=== PATIENT | male | born 1980 | race Two or more races ===

== ENCOUNTER 2017-05-05 12:09 | Inpatient (IN) | payer OTHER ==
[2017-05-05 12:37] VITALS: BMI 22.8
--- NOTE | 2017-05-05 16:57 | HP ---
COWS - Scale Resting Pulse: 2= MT 101-120 Sweatin=Flushed/Facial Moisture Restless Observation: 3= Extraneous Movement Pupil Size: 1= Pupils >than Normal Bone or Joint Aches: 2= Severe Diffuse Aches Runny Nose/ Eye Tearin= Nasal Congestion GI Upset > 30mins: 1= Stomach Cramp Tremor Observation: 2= Slight Tremor Visible Yawning Observation: 0= None Anxiety or Irritability: 2=Irritable/Anxious Goose Flesh Skin: 0=Smooth Skin COWS Score: 16 Admission [facility] Chief Complaint: Heroin withdrawal symptoms Allergies/Adverse Reactions: Allergies Allergy/AdvReac Type Severity Reaction Status Date / Time No Known Allergies Allergy Verified 05/05/17 16:51 History of Present Illness: 36 years old male with a long history of heroin, crack cocaine dependence is admitted to detox. Patient has been in previous detox and reports no significant period of abstinence. Patient reports medical history of asthma, acne and insomnia. He denies history of suicidal attempt or suicidal ideation at this time. Patient reports., " My goal is to stop drug use." This is patient' s first admission to [facility]. Exam Limitations: No Limitations - Ebola screening Have you traveled outside of the country in the last 21 days: No Have you had contact with anyone from an Ebola affected area: No Have you been sick,other than usual withdrawal symptoms: No Do you have a fever: No - Review of Systems Constitutional: Chills, Diaphoresis, Loss of Appetite, Malaise, Night Sweats, Changes in sleep EENT: reports: No Symptoms Reported Respiratory: reports: Cough (yellowish phlegm) Cardiac: reports: No Symptoms Reported GI: reports: Poor Appetite, Poor Fluid Intake, Abdominal cramping : reports: No Symptoms Reported Musculoskeletal: reports: Back Pain, Muscle Pain, Muscle Weakness Integumentary: reports: Flushing Neuro: reports: Tingling, Tremors Endocrine: reports: Flushing Hematology: reports: No Symptoms Reported Psychiatric: reports: Orientated x3, Agitated, Anxious Other Systems: Reviewed and Negative Patient History - Patient Medical History Hx Anemia: No Hx Asthma: Yes (on albuterol) Hx Chronic Obstructive Pulmonary Disease (COPD): No Hx Cancer: No Hx Cardiac Disorders: No Hx Congestive Heart Failure: No Hx Hypertension: No Hx Hypercholesterolemia: No HX Cerebrovascular Accident: No Hx Seizures: No Hx Dementia: No Hx Diabetes: No Hx Gastrointestinal Disorders: No Hx Liver Disease: No Hx Genitourinary Disorders: No Hx Sexually Transmitted Disorders: No Hx Renal Disease (ESRD): No Hx Thyroid Disease: No Hx Human Immunodeficiency Virus (HIV): No (Negative 2017) Hx Hepatitis C: No Hx Depression: No Hx Suicide Attempt: No Hx Bipolar Disorder: No Hx Schizophrenia: No - Patient Surgical History Past Surgical History: No - PPD History Previous Implant?: Yes Implanted On Prior R Admission?: No PPD to be Administered?: Yes - Reproductive History Patient is a Female of Child Bearing Age (11 -55 yrs old): No (Male) - Smoking Cessation Smoking history: Never smoked Have you smoked in the past 12 months: No Hx Chewing Tobacco Use: No Initiated information on smoking cessation: No - Substances Abused Heroin Route: Inhalation Frequency: Daily Amount used: 25 bags Age of first use: 27 Date of Last Use: 05/05/17 Cocaine (crack) Route: Smoking Frequency: Daily Amount used: $100-$120 Age of first use: 34 Date of Last Use: 05/05/17 Marijuana/Hashish Route: Smoking Amount used: $20 Age of first use: 14 Date of Last Use: 05/03/17 Family Disease History - Family Disease History Family Disease History: Diabetes: Mother, Heart Disease: Father (heart attack- ) Admission Physical Exam BHS - Vital Signs Vital Signs: Vital Signs - 24 hr 05/05/17 05/05/17 12:32 12:56 Temperature 98.4 F 98.4 F Pulse Rate 102 H 102 H Respiratory 19 19 Rate Blood Pressure 136/93 136/93 - Physical General Appearance: Yes: Moderate Distress, Tremorous, Irritable, Sweating, Anxious HEENTM: Yes: AUGUST, Sinus Tenderness, Other (acne) Respiratory: Yes: Chest Non-Tender, Wheezing Neck: Yes: No masses,lesions,Nodules, Supple, Trachea in good position Breast: Yes: Breast Exam Deferred Cardiology: Yes: Regular Rhythm, Regular Rate, S1, S2 Abdominal: Yes: Normal Bowel Sounds, Soft Genitourinary: Yes: Within Normal Limits Back: Yes: Muscle Spasm Musculoskeletal: Yes: Muscle Pain, Muscle weakness Extremities: Yes: Tremors Neurological: Yes: Alert, Normal Mood/Affect, Normal Response Integumentary: Yes: Dry (skin and mucous membrane), Pale Lymphatic: Yes: Within Normal Limits - Diagnostic (1) Opioid dependence with withdrawal Current Visit: Yes Status: Chronic (2) Cocaine dependence, uncomplicated Current Visit: Yes Status: Chronic (3) Cannabis dependence, uncomplicated Current Visit: Yes Status: Chronic (4) Asthma Current Visit: Yes Status: Chronic (5) Insomnia Current Visit: Yes Status: Chronic Cleared for Admission [facility] - Detox or Rehab [facility] Level of Care: Medically Managed Detox Regimen/Protocol: Methadone [facility] Breath Alcohol Content Breath Alcohol Content: 0 Urine Drug Screen - Results Drug Screen Negative: No Urine Drug Screen Results: LUIS DANIEL-Cocaine, OPI-Opiates
[2017-05-05] MEDS ORDERED: LOPERAMIDE HCL 2 MG CAPSULE PO PRN (17:19)
[2017-05-05] MEDS ORDERED: IBUPROFEN 400 MG TABLET (FP) PO PRN (17:19)
[2017-05-05] MEDS ORDERED: MAGNESIUM HYDROX 2400MG/30ML ORAL SUSPENSION 30 ML CUP PO PRN (17:19)
[2017-05-05] MEDS ORDERED: MAG HYDROX/AL HYDROX/SIMETH 30 ML UNIT-DOSE CUP PO PRN (17:19)
[2017-05-05] MEDS ORDERED: MAGNESIUM CITRATE 300 ML BOTTLE PO PRN (17:19)
[2017-05-05] MEDS ORDERED: MENTHOL/PHENOL 1 EACH UD MM PRN (17:19)
[2017-05-05] MEDS ORDERED: P-EPHED 60MG/TRIPROLIDI 2.5MG TABLET PO PRN (17:19)
[2017-05-05] MEDS ORDERED: guaiFENesin/D-METHORPHAN HB 10 ML UNIT-DOSE CUPS PO PRN (17:19)
[2017-05-05] MEDS ORDERED: METHADONE HCL 10 MG TABLET (FOR DETOX USE ONLY) PO ONE ×2 (18:00→23:00)
[2017-05-05] MEDS: diazePAM 5 MG TABLET PO PRN (18:33)
[2017-05-05] MEDS: THIAMINE HCL 100 MG TABLET (FP) PO SCH (22:08)
[2017-05-06 00:15] LABS: PH,URINE 6.5 (5.0-8.0); URINE APPEARANCE CLEAR; URINE BILIRUBIN NEGATIVE (NEGATIVE); URINE BLOOD NEGATIVE (NEGATIVE); URINE COLOR LT. YELLOW; URINE GLUCOSE (UA) NEGATIVE (NEGATIVE); URINE KETONE NEGATIVE (NEGATIVE); URINE LEUK ESTERASE NEGATIVE (NEGATIVE); URINE NITRITE NEGATIVE (NEGATIVE); URINE PROTEIN NEGATIVE (NEGATIVE); URINE UROBILINOGEN 0.2 mg/dL (0.2-1.0)
[2017-05-06] MEDS: diazePAM 5 MG TABLET PO PRN ×5 (01:00→22:25)
[2017-05-06] MEDS: ALBUTEROL SO4 18 GM HFA INHALER IH PRN ×3 (01:01→19:00)
[2017-05-06] MEDS ORDERED: ALBUTEROL SO4 2.5/IPRATROPIUM 0.5 INH SOL 3 ML VIAL.NEB. NEB PRN (08:30)
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
[2017-05-06] MEDS ORDERED: METHADONE HCL 10 MG TABLET (FOR DETOX USE ONLY) PO ONE (10:00)
[2017-05-06] MEDS: PRENATAL VITAMINS W/ FOLIC ACID TABLET (FP) PO SCH (10:35)
--- NOTE | 2017-05-06 10:50 | EKG ---
Test Reason : Blood Pressure : / mmHG Vent. Rate : 091 BPM Atrial Rate : 091 BPM P-R Int : 142 ms QRS Dur : 088 ms QT Int : 354 ms P-R-T Axes : 072 078 053 degrees QTc Int : 435 ms NORMAL SINUS RHYTHM POSSIBLE LEFT ATRIAL ENLARGEMENT BORDERLINE ECG NO PREVIOUS ECGS AVAILABLE Confirmed by MD SOFYA, ENDER ([id number]) on 05/06/2017 10:50:20 AM Referred By: Confirmed By:ENDER COWART MD
[2017-05-06] MEDS ORDERED: COLLOIDAL OATMEAL 1 BAR EACH TP PRN (11:00)
[2017-05-06 11:05] LABS: ALBUMIN 3.4 g/dl (3.4-5.0); ALK PHOS 62 U/L (45-117); ANION GAP 8 (8-16); BILIRUBIN,TOTAL 0.4 mg/dL (0.2-1.0); CALCIUM 7.9 mg/dL (8.5-10.1); CO2 27 mmol/L (21-32); CREATININE 0.8 mg/dL (0.7-1.3); GLUCOSE,RANDOM 88 mg/dL (74-106); SGOT/AST 9 U/L (15-37); SGPT/ALT 22 U/L (12-78); TOT PROT 6.6 g/dl (6.4-8.2)
[2017-05-06 11:08] LABS: MCH 27.7 pg (25.7-33.7); MCHC 32.5 g/dl (32.0-35.9); MEAN CELL VOLUME 85.3 fl (80-96); MEAN PLT VOLUME 9.6 fl (7.5-11.1); PLATELET COUNT 249 K/MM3 (134-434); RDW 13.1 % (11.9-15.9); WHITE BLOOD COUNT 13.5 K/mm3 (4.0-10.0)
[2017-05-06 11:27] LABS: HIV 1 & 2 AB NEGATIVE; HIV 1 AGp24 NEGATIVE
[2017-05-06] MEDS: BACITRACIN 0.9 GM PACKET TP SCH ×2 (14:47→22:24)
[2017-05-06 14:59] LABS: URINE LEUK ESTERASE Negative (NEGATIVE)
--- NOTE | 2017-05-06 15:00 | PN ---
BHS COWS - Scale Resting Pulse: 2= [place] 101-120 Sweatin= Chills/Flushing Restless Observation: 1= Difficult to Sit Still Pupil Size: 0= Normal to Room Light Bone or Joint Aches: 2= Severe Diffuse Aches Runny Nose/ Eye Tearin= Nasal Congestion GI Upset > 30mins: 0= None Tremor Observation of Outstretched Hands: 0= None Yawning Observation: 1= 1-2x During Session Anxiety or Irritability: 2=Irritable/Anxious Goose Flesh Skin: 3=Piloerection COWS Score: 13 BHS Progress Note (SOAP) Subjective: Anxious, Sweating, Body Aches. Objective: PT. A & O X 3, OBSERVED AMBULATING ON UNIT. NO ACUTE DISTRESS. 05/06/17 14:58 Vital Signs Temperature 97.9 F 05/06/17 13:21 Pulse Rate 117 H 05/06/17 13:21 Respiratory Rate 18 05/06/17 13:21 Blood Pressure 132/83 05/06/17 13:21 O2 Sat by Pulse Oximetry (%) Laboratory Tests 05/05/17 05/06/17 05/06/17 21:00 07:00 07:00 WBC 13.5 H RBC 5.25 Hgb 14.6 Hct 44.8 MCV 85.3 MCH 27.7 MCHC 32.5 RDW 13.1 Plt Count 249 MPV 9.6 Sodium 141 Potassium 3.6 Chloride 106 Carbon Dioxide 27 Anion Gap 8 BUN 9 Creatinine 0.8 Creat Clearance w eGFR > 60 Random Glucose 88 Calcium 7.9 L Total Bilirubin 0.4 AST 9 L ALT 22 Alkaline Phosphatase 62 Total Protein 6.6 Albumin 3.4 Urine Color Lt. yellow Urine Appearance Clear Urine pH 6.5 Ur Specific [place] 1.015 Urine Protein Negative Urine Glucose (UA) Negative Urine Ketones Negative Urine Blood Negative Urine Nitrite Negative Urine Bilirubin Negative Urine Urobilinogen 0.2 RPR Titer HIV 1&2 Antibody Screen HIV P24 Antigen 05/06/17 05/06/17 07:00 08:00 WBC RBC Hgb Hct MCV MCH MCHC RDW Plt Count MPV Sodium Potassium Chloride Carbon Dioxide Anion Gap BUN Creatinine Creat Clearance w eGFR Random Glucose Calcium Total Bilirubin AST ALT Alkaline Phosphatase Total Protein Albumin Urine Color Urine Appearance Urine pH Ur Specific [place] Urine Protein Urine Glucose (UA) Urine Ketones Urine Blood Urine Nitrite Urine Bilirubin Urine Urobilinogen RPR Titer Nonreactive HIV 1&2 Antibody Screen Negative HIV P24 Antigen Negative LABS NOTED. HCV AB RESULT PENDING. 05/06/17 15:00 Assessment: 05/06/17 14:59 WITHDRAWAL SYMPTOMS. Plan: CONTINUE DETOX. INCREASE DAILY PO FLUID INTAKE.
[2017-05-06] MEDS: ACETAMINOPHEN 325 MG TABLET (FP) PO PRN (20:24)
[2017-05-06] MEDS: ZOLPIDEM TARTRATE 10 MG TABLET (PARK CARE ONLY) PO PRN (22:25)
[2017-05-06] MEDS: THIAMINE HCL 100 MG TABLET (FP) PO SCH (22:25)
[2017-05-07] MEDS: ALBUTEROL SO4 18 GM HFA INHALER IH PRN ×3 (05:02→22:32)
[2017-05-07] MEDS ORDERED: METHADONE HCL 5 MG TABLET (FOR DETOX USE ONLY) PO ONE (10:00)
[2017-05-07] MEDS: BACITRACIN 0.9 GM PACKET TP SCH ×2 (10:42→22:32)
[2017-05-07] MEDS: PRENATAL VITAMINS W/ FOLIC ACID TABLET (FP) PO SCH (10:43)
[2017-05-07] MEDS: diazePAM 5 MG TABLET PO PRN ×3 (10:43→18:54)
--- NOTE | 2017-05-07 14:34 | PN ---
[facility] CIWA - CIWA Score Nausea/Vomitin-No Nausea/No Vomiting Muscle Tremors: None Anxiety: 5 Agitation: 4-Moderately Restless Paroxysmal Sweats: 3 Orientation: 0-Oriented Tacttile Disturbances: 2-Mild Itch/Numbness/Burn Auditory Disturbances: 2-Mild Harshness/Frighten Visual Disturbances: 0-None Headache: 0-None Present CIWA-Ar Total Score: 16 S Progress Note (SOAP) Subjective: Anxious, Sweating, Body Aches. Objective: PT. A & O X 3, OBSERVED AMBULATING ON UNIT. NO ACUTE DISTRESS. 05/07/17 14:31 Vital Signs Temperature 98.8 F 05/07/17 09:43 Pulse Rate 108 H 05/07/17 09:43 Respiratory Rate 18 05/07/17 09:43 Blood Pressure 129/83 05/07/17 09:43 O2 Sat by Pulse Oximetry (%) Laboratory Tests 05/05/17 05/05/17 05/06/17 07:00 21:00 07:00 WBC 13.5 H RBC 5.25 Hgb 14.6 Hct 44.8 MCV 85.3 MCH 27.7 MCHC 32.5 RDW 13.1 Plt Count 249 MPV 9.6 Sodium Potassium Chloride Carbon Dioxide Anion Gap BUN Creatinine Creat Clearance w eGFR Random Glucose Calcium Total Bilirubin AST ALT Alkaline Phosphatase Total Protein Albumin Urine Color Lt. yellow Urine Appearance Clear Urine pH 6.5 Ur Specific [place] 1.015 Urine Protein Negative Urine Glucose (UA) Negative Urine Ketones Negative Urine Blood Negative Urine Nitrite Negative Urine Bilirubin Negative Urine Urobilinogen 0.2 Ur Leukocyte Esterase Negative RPR Titer Hepatitis C Antibody <0.1 HIV 1&2 Antibody Screen HIV P24 Antigen 05/06/17 05/06/17 05/06/17 07:00 07:00 08:00 WBC RBC Hgb Hct MCV MCH MCHC RDW Plt Count MPV Sodium 141 Potassium 3.6 Chloride 106 Carbon Dioxide 27 Anion Gap 8 BUN 9 Creatinine 0.8 Creat Clearance w eGFR > 60 Random Glucose 88 Calcium 7.9 L Total Bilirubin 0.4 AST 9 L ALT 22 Alkaline Phosphatase 62 Total Protein 6.6 Albumin 3.4 Urine Color Urine Appearance Urine pH Ur Specific [place] Urine Protein Urine Glucose (UA) Urine Ketones Urine Blood Urine Nitrite Urine Bilirubin Urine Urobilinogen Ur Leukocyte Esterase RPR Titer Nonreactive Hepatitis C Antibody HIV 1&2 Antibody Screen Negative HIV P24 Antigen Negative LABS NOTED. Assessment: 05/07/17 14:32 WITHDRAWAL SYMPTOMS. Plan: CONTINUE DETOX. INCREASE DAILY PO FLUID INTAKE.
[2017-05-07] MEDS: ZOLPIDEM TARTRATE 10 MG TABLET (PARK CARE ONLY) PO PRN (22:32)
[2017-05-07] MEDS: THIAMINE HCL 100 MG TABLET (FP) PO SCH (22:32)
[2017-05-08] MEDS ORDERED: METHADONE HCL 5 MG TABLET (FOR DETOX USE ONLY) PO ONE (10:00)
[2017-05-08] MEDS: BACITRACIN 0.9 GM PACKET TP SCH ×2 (10:44→22:23)
[2017-05-08] MEDS: PRENATAL VITAMINS W/ FOLIC ACID TABLET (FP) PO SCH (10:44)
[2017-05-08] MEDS: diazePAM 5 MG TABLET PO PRN ×2 (10:44→14:56)
[2017-05-08] MEDS: ALBUTEROL SO4 18 GM HFA INHALER IH PRN (10:45)
--- NOTE | 2017-05-08 14:08 | PN ---
BHS Progress Note (SOAP) Subjective: Anxious, restless, feeling depressed (denies SI, HI, AH, VH), interrupted sleep Objective: 05/08/17 14:05 Last Vital Signs Temp Pulse Resp BP Pulse Ox 95.2 F L 109 H 18 132/81 05/08/17 10:38 05/08/17 10:38 05/08/17 14:03 05/08/17 10:38 Laboratory Tests 05/05/17 05/05/17 05/06/17 07:00 21:00 07:00 WBC 13.5 H RBC 5.25 Hgb 14.6 Hct 44.8 MCV 85.3 MCH 27.7 MCHC 32.5 RDW 13.1 Plt Count 249 MPV 9.6 Sodium Potassium Chloride Carbon Dioxide Anion Gap BUN Creatinine Creat Clearance w eGFR Random Glucose Calcium Total Bilirubin AST ALT Alkaline Phosphatase Total Protein Albumin Urine Color Lt. yellow Urine Appearance Clear Urine pH 6.5 Ur Specific [place] 1.015 Urine Protein Negative Urine Glucose (UA) Negative Urine Ketones Negative Urine Blood Negative Urine Nitrite Negative Urine Bilirubin Negative Urine Urobilinogen 0.2 Ur Leukocyte Esterase Negative RPR Titer Hepatitis C Antibody <0.1 HIV 1&2 Antibody Screen HIV P24 Antigen 05/06/17 05/06/17 05/06/17 07:00 07:00 08:00 WBC RBC Hgb Hct MCV MCH MCHC RDW Plt Count MPV Sodium 141 Potassium 3.6 Chloride 106 Carbon Dioxide 27 Anion Gap 8 BUN 9 Creatinine 0.8 Creat Clearance w eGFR > 60 Random Glucose 88 Calcium 7.9 L Total Bilirubin 0.4 AST 9 L ALT 22 Alkaline Phosphatase 62 Total Protein 6.6 Albumin 3.4 Urine Color Urine Appearance Urine pH Ur Specific [place] Urine Protein Urine Glucose (UA) Urine Ketones Urine Blood Urine Nitrite Urine Bilirubin Urine Urobilinogen Ur Leukocyte Esterase RPR Titer Nonreactive Hepatitis C Antibody HIV 1&2 Antibody Screen Negative HIV P24 Antigen Negative Labs noted: wbc 13.5 Assessment: 05/08/17 14:06 Withdrawal symptoms Noted with leukocytosis Plan: Continue detox Leukocytosis: asymptomatic for infection, repeat cbc
[2017-05-08] MEDS: ACETAMINOPHEN 325 MG TABLET (FP) PO PRN (16:36)
[2017-05-08] MEDS: THIAMINE HCL 100 MG TABLET (FP) PO SCH (22:23)
[2017-05-08] MEDS: ZOLPIDEM TARTRATE 10 MG TABLET (PARK CARE ONLY) PO PRN (22:23)
[2017-05-09] MEDS ORDERED: METHADONE HCL 10 MG TABLET (FOR DETOX USE ONLY) PO ONE (10:00)
[2017-05-09] MEDS: BACITRACIN 0.9 GM PACKET TP SCH ×2 (10:31→22:42)
[2017-05-09] MEDS: PRENATAL VITAMINS W/ FOLIC ACID TABLET (FP) PO SCH (10:31)
[2017-05-09 10:44] LABS: BASOPHIL 0.9 % (0-2.0); EOSINOPHIL 8.3 % (0-4.5); MCH 27.8 pg (25.7-33.7); MCHC 32.6 g/dl (32.0-35.9); MEAN CELL VOLUME 85.2 fl (80-96); MEAN PLT VOLUME 9.8 fl (7.5-11.1); NEUTROPHILS 51.3 % (42.8-82.8); PLATELET COUNT 225 K/MM3 (134-434); RDW 13.3 % (11.9-15.9); WHITE BLOOD COUNT 7.1 K/mm3 (4.0-10.0)
--- NOTE | 2017-05-09 12:27 | PN ---
S Progress Note (SOAP) Subjective: Anxious, Sweating. Objective: PT. A & O X 3, OBSERVED AMBULATING ON UNIT. NO ACUTE DISTRESS. 05/09/17 12:26 Vital Signs Temperature 95.8 F L 05/09/17 09:25 Pulse Rate 106 H 05/09/17 09:25 Respiratory Rate 20 05/09/17 09:25 Blood Pressure 117/78 05/09/17 09:25 O2 Sat by Pulse Oximetry (%) Laboratory Tests 05/05/17 05/05/17 05/06/17 07:00 21:00 07:00 WBC 13.5 H RBC 5.25 Hgb 14.6 Hct 44.8 MCV 85.3 MCH 27.7 MCHC 32.5 RDW 13.1 Plt Count 249 MPV 9.6 Neutrophils % Lymphocytes % Monocytes % Eosinophils % Basophils % Sodium Potassium Chloride Carbon Dioxide Anion Gap BUN Creatinine Creat Clearance w eGFR Random Glucose Calcium Total Bilirubin AST ALT Alkaline Phosphatase Total Protein Albumin Urine Color Lt. yellow Urine Appearance Clear Urine pH 6.5 Ur Specific [place] 1.015 Urine Protein Negative Urine Glucose (UA) Negative Urine Ketones Negative Urine Blood Negative Urine Nitrite Negative Urine Bilirubin Negative Urine Urobilinogen 0.2 Ur Leukocyte Esterase Negative RPR Titer Hepatitis C Antibody <0.1 HIV 1&2 Antibody Screen HIV P24 Antigen 05/06/17 05/06/17 05/06/17 07:00 07:00 08:00 WBC RBC Hgb Hct MCV MCH MCHC RDW Plt Count MPV Neutrophils % Lymphocytes % Monocytes % Eosinophils % Basophils % Sodium 141 Potassium 3.6 Chloride 106 Carbon Dioxide 27 Anion Gap 8 BUN 9 Creatinine 0.8 Creat Clearance w eGFR > 60 Random Glucose 88 Calcium 7.9 L Total Bilirubin 0.4 AST 9 L ALT 22 Alkaline Phosphatase 62 Total Protein 6.6 Albumin 3.4 Urine Color Urine Appearance Urine pH Ur Specific [place] Urine Protein Urine Glucose (UA) Urine Ketones Urine Blood Urine Nitrite Urine Bilirubin Urine Urobilinogen Ur Leukocyte Esterase RPR Titer Nonreactive Hepatitis C Antibody HIV 1&2 Antibody Screen Negative HIV P24 Antigen Negative 05/09/17 07:00 WBC 7.1 D RBC 5.10 Hgb 14.2 Hct 43.4 MCV 85.2 MCH 27.8 MCHC 32.6 RDW 13.3 Plt Count 225 MPV 9.8 Neutrophils % 51.3 Lymphocytes % 31.3 Monocytes % 8.2 Eosinophils % 8.3 H Basophils % 0.9 Sodium Potassium Chloride Carbon Dioxide Anion Gap BUN Creatinine Creat Clearance w eGFR Random Glucose Calcium Total Bilirubin AST ALT Alkaline Phosphatase Total Protein Albumin Urine Color Urine Appearance Urine pH Ur Specific [place] Urine Protein Urine Glucose (UA) Urine Ketones Urine Blood Urine Nitrite Urine Bilirubin Urine Urobilinogen Ur Leukocyte Esterase RPR Titer Hepatitis C Antibody HIV 1&2 Antibody Screen HIV P24 Antigen LABS NOTED. RESULTS OF REPEAT CBC NOTED. 05/09/17 12:27 Assessment: 05/09/17 12:26 WITHDRAWAL SYMPTOMS. Plan: CONTINUE DETOX.
[2017-05-09] MEDS: ALBUTEROL SO4 18 GM HFA INHALER IH PRN ×3 (13:26→22:42)
[2017-05-09] MEDS: ACETAMINOPHEN 325 MG TABLET (FP) PO PRN (16:06)
[2017-05-09] MEDS: THIAMINE HCL 100 MG TABLET (FP) PO SCH (22:42)
[2017-05-10] MEDS ORDERED: METHADONE HCL 5 MG TABLET (FOR DETOX USE ONLY) PO ONE (06:00)
[2017-05-10 09:17] VITALS: BP 125/79; PULSE 104; TEMP 99
[2017-05-10] MEDS: PRENATAL VITAMINS W/ FOLIC ACID TABLET (FP) PO SCH (09:20)
[2017-05-10] MEDS: BACITRACIN 0.9 GM PACKET TP SCH (09:20)
--- NOTE | 2017-05-10 11:56 | DS ---
[facility] Detox Discharge Summary Admission Date: 05/05/17 Discharge Date: 05/10/17 - History Present History: Cannabis Dependence, Cocaine Dependence, Opioid Dependence Pertinent Past History: asthma - Physical Exam Results Vital Signs: Vital Signs Temperature 99 F 05/10/17 09:16 Pulse Rate 104 H 05/10/17 09:16 Respiratory Rate 18 05/10/17 09:16 Blood Pressure 125/79 05/10/17 09:16 O2 Sat by Pulse Oximetry (%) Pertinent Admission Physical Exam Findings: withdrawal sx Laboratory Last Values WBC 7.1 K/mm3 (4.0-10.0) D 05/09/17 07:00 RBC 5.10 M/mm3 (4.00-5.60) 05/09/17 07:00 Hgb 14.2 GM/dL (11.7-16.9) 05/09/17 07:00 Hct 43.4 % (35.4-49) 05/09/17 07:00 MCV 85.2 fl (80-96) 05/09/17 07:00 MCH 27.8 pg (25.7-33.7) 05/09/17 07:00 MCHC 32.6 g/dl (32.0-35.9) 05/09/17 07:00 RDW 13.3 % (11.9-15.9) 05/09/17 07:00 Plt Count 225 K/MM3 (134-434) 05/09/17 07:00 MPV 9.8 fl (7.5-11.1) 05/09/17 07:00 Neutrophils % 51.3 % (42.8-82.8) 05/09/17 07:00 Lymphocytes % 31.3 % (8-40) 05/09/17 07:00 Monocytes % 8.2 % (3.8-10.2) 05/09/17 07:00 Eosinophils % 8.3 % (0-4.5) H 05/09/17 07:00 Basophils % 0.9 % (0-2.0) 05/09/17 07:00 Sodium 141 mmol/L (136-145) 05/06/17 07:00 Potassium 3.6 mmol/L (3.5-5.1) 05/06/17 07:00 Chloride 106 mmol/L (98-107) 05/06/17 07:00 Carbon Dioxide 27 mmol/L (21-32) 05/06/17 07:00 Anion Gap 8 (8-16) 05/06/17 07:00 BUN 9 mg/dL (7-18) 05/06/17 07:00 Creatinine 0.8 mg/dL (0.7-1.3) 05/06/17 07:00 Creat Clearance w eGFR > 60 (>60) 05/06/17 07:00 Random Glucose 88 mg/dL (74-106) 05/06/17 07:00 Calcium 7.9 mg/dL (8.5-10.1) L 05/06/17 07:00 Total Bilirubin 0.4 mg/dL (0.2-1.0) 05/06/17 07:00 AST 9 U/L (15-37) L 05/06/17 07:00 ALT 22 U/L (12-78) 05/06/17 07:00 Alkaline Phosphatase 62 U/L (45-117) 05/06/17 07:00 Total Protein 6.6 g/dl (6.4-8.2) 05/06/17 07:00 Albumin 3.4 g/dl (3.4-5.0) 05/06/17 07:00 Urine Color Lt. yellow 05/05/17 21:00 Urine Appearance Clear 05/05/17 21:00 Urine pH 6.5 (5.0-8.0) 05/05/17 21:00 Ur Specific [place] 1.015 (1.001-1.035) 05/05/17 21:00 Urine Protein Negative (NEGATIVE) 05/05/17 21:00 Urine Glucose (UA) Negative (NEGATIVE) 05/05/17 21:00 Urine Ketones Negative (NEGATIVE) 05/05/17 21:00 Urine Blood Negative (NEGATIVE) 05/05/17 21:00 Urine Nitrite Negative (NEGATIVE) 05/05/17 21:00 Urine Bilirubin Negative (NEGATIVE) 05/05/17 21:00 Urine Urobilinogen 0.2 mg/dL (0.2-1.0) 05/05/17 21:00 Ur Leukocyte Esterase Negative (NEGATIVE) 05/05/17 21:00 RPR Titer Nonreactive (NONREACTIVE) 05/06/17 07:00 Hepatitis C Antibody <0.1 s/co ratio (0.0-0.9) 05/05/17 07:00 HIV 1&2 Antibody Screen Negative 05/06/17 08:00 HIV P24 Antigen Negative 05/06/17 08:00 lab noted - Treatment Hospital Course: Detox Protocol Followed, Detoxed Safely, Responded well, Discharged Condition Good, Rehab Referral Accepted Patient has Accepted a Rehab Referral to: as per sofiya arranged - Medication Discharge Medications: Ambulatory Orders Albuterol Sulfate Inhaler - [Ventolin Hfa Inhaler -] 2 inh PO Q4H PRN #1 inhaler 05/10/17 - Diagnosis (1) Opioid dependence with withdrawal Status: Acute (2) Asthma Status: Chronic Qualifiers: Asthma severity: mild Asthma persistence: unspecified Asthma complication type: with status asthmaticus Qualified Code(s): J45.902 - Unspecified asthma with status asthmaticus (3) Cannabis dependence, uncomplicated Status: Chronic (4) Cocaine dependence, uncomplicated Status: Chronic - AMA Did Patient Leave Against Medical Advice: No
== END 2017-05-10 10:54 | disposition home or self-care (01) | DRG 773 ==
LOC: YASAS 12:09 → Y3N 17:36
PROVIDERS: ADMIT Internal Medicine; ATTEND Internal Medicine
PROC: HZ2ZZZZ Detoxification Services for Substance Abuse Treatment (ICD-10-PCS; principal; 2017-05-05)
DX: F11.23 Opioid dependence with withdrawal (principal); F14.20 Cocaine dependence, uncomplicated; F12.20 Cannabis dependence, uncomplicated; F19.24 Other psychoactive substance dependence with psychoactive substance-induced mood disorder; F19.282 Other psychoactive substance dependence with psychoactive substance-induced sleep disorder; J45.902 Unspecified asthma with status asthmaticus
CPT/HCPCS: 36415; 80053; 81003; 85025; 85027; 86593; 86803; 87389; 93005; 93010; 94640

== ENCOUNTER 2017-06-10 10:32 | Inpatient (IN) | payer OTHER ==
[2017-06-10 12:38] VITALS: BMI 28.1
--- NOTE | 2017-06-10 15:48 | HP ---
COWS - Scale Resting Pulse: 0= [place] 80 or Below Sweatin=Flushed/Facial Moisture Restless Observation: 0= Sits Still Pupil Size: 0= Normal to Room Light Bone or Joint Aches: 2= Severe Diffuse Aches Runny Nose/ Eye Tearin= Runny Nose/Eyes GI Upset > 30mins: 1= Stomach Cramp Tremor Observation: 2= Slight Tremor Visible Yawning Observation: 2= >3x During Session Anxiety or Irritability: 2=Irritable/Anxious Goose Flesh Skin: 3=Piloerection COWS Score: 16 Admission ROS S - HPI Chief Complaint: I need help and need to stop. Allergies/Adverse Reactions: Allergies Allergy/AdvReac Type Severity Reaction Status Date / Time No Known Allergies Allergy Verified 05/05/17 16:51 History of Present Illness: Pt is a 37yr old male with a history of heroin, cocaine dependence seeking detox for treatment. Exam Limitations: Language Barrier (understand [place]) - Ebola screening Have you traveled outside of the country in the last 21 days: No (N) Have you had contact with anyone from an Ebola affected area: No Have you been sick,other than usual withdrawal symptoms: No Do you have a fever: No - Review of Systems Constitutional: Chills, Diaphoresis, Loss of Appetite, Night Sweats, Changes in sleep, Unintentional Wgt. Loss EENT: reports: Tearing, Nose Congestion Respiratory: reports: Cough Cardiac: reports: No Symptoms Reported GI: reports: Diarrhea, Poor Appetite, Poor Fluid Intake : reports: No Symptoms Reported Musculoskeletal: reports: Back Pain, Joint Pain Integumentary: reports: Flushing, Sweating, Other (picks skin on face d/t drug use) Neuro: reports: Headache, Tingling, Tremors Endocrine: reports: Excessive Sweating, Intolerance to Cold, Intolerance to Heat Hematology: reports: No Symptoms Reported Psychiatric: reports: Judgement Intact, Mood/Affect Appropiate, Orientated x3, Agitated, Anxious, Depressed Other Systems: Reviewed and Negative Patient History - Patient Medical History Hx Anemia: No Hx Asthma: Yes (on albuterol) Hx Chronic Obstructive Pulmonary Disease (COPD): No Hx Cancer: No Hx Cardiac Disorders: No Hx Congestive Heart Failure: No Hx Hypertension: No Hx Hypercholesterolemia: No Hx Pacemaker: No HX Cerebrovascular Accident: No Hx Seizures: No Hx Dementia: No Hx Diabetes: No Hx Gastrointestinal Disorders: No Hx Liver Disease: No Hx Genitourinary Disorders: No Hx Sexually Transmitted Disorders: No Hx Renal Disease (ESRD): No Hx Thyroid Disease: No Hx Human Immunodeficiency Virus (HIV): No (Negative 2016) Hx Hepatitis C: No (negtive) Hx Depression: Yes Hx Suicide Attempt: No (denies) Hx Bipolar Disorder: No Hx Schizophrenia: No Other Medical History: anxiety - Patient Surgical History Past Surgical History: No Hx Neurologic Surgery: No Hx Cataract Extraction: No Hx Cardiac Surgery: No Hx Lung Surgery: No Hx Breast Surgery: No Hx Breast Biopsy: No Hx Abdominal Surgery: No Hx Appendectomy: No Hx Cholecystectomy: No Hx Genitourinary Surgery: No Hx Section: No Hx Orthopedic Surgery: No Anesthesia Reaction: No - PPD History Previous Implant?: Yes Documented Results: Negative w/proof Date: 05/07/17 PPD to be Administered?: No - Reproductive History Patient is a Female of Child Bearing Age (11 -55 yrs old): No - Smoking Cessation Smoking history: Never smoked Have you smoked in the past 12 months: No Hx Chewing Tobacco Use: No Initiated information on smoking cessation: No - Substance & Tx. History Hx Alcohol Use: No Hx Substance Use: Yes Substance Use Type: Cocaine, Heroin Hx Substance Use Treatment: Yes (04/2017 [facility] detox) - Substances Abused Heroin Route: Inhalation Frequency: Daily Amount used: 25 bags Age of first use: 31 Date of Last Use: 06/10/17 Cocaine Route: Inhalation Frequency: Daily Amount used: 2 baGS Age of first use: 27 Date of Last Use: 06/08/17 Family Disease History - Family Disease History Family Disease History: Diabetes: Mother, Heart Disease: Father (heart attack- ) Admission Physical Exam B[facility] - Vital Signs Vital Signs: Vital Signs - 24 hr 06/10/17 12:33 Temperature 97.1 F L Pulse Rate 90 Respiratory 18 Rate Blood Pressure 134/84 - Physical General Appearance: Yes: Appropriately Dressed, Moderate Distress, Tremorous, Irritable, Sweating, Anxious HEENTM: Yes: Hearing grossly Normal, Nasal Congestion, Rhinorrhea Respiratory: Yes: Lungs Clear, Normal Breath Sounds, No Respiratory Distress Neck: Yes: No masses,lesions,Nodules Breast: Yes: Within Normal Limits, Axillae without masses Cardiology: Yes: Regular Rhythm, Regular Rate, S1, S2 Abdominal: Yes: Normal Bowel Sounds, Non Tender, Soft Genitourinary: Yes: Within Normal Limits Back: Yes: Normal Inspection Musculoskeletal: Yes: full range of Motion, Back pain Extremities: Yes: Normal Capillary Refill, Normal Inspection, Non-Tender, Tremors Neurological: Yes: Fully Oriented, Normal Response Integumentary: Yes: Normal Color, Diaphoresis Lymphatic: Yes: Within Normal Limits - Diagnostic (1) Asthma Current Visit: Yes Status: Chronic Qualifiers: Asthma severity: mild Asthma complication type: uncomplicated (2) Opioid dependence with withdrawal Current Visit: Yes Status: Chronic (3) Cocaine dependence, uncomplicated Current Visit: Yes Status: Chronic Cleared for Admission [facility] - Detox or Rehab [facility] Level of Care: Medically Managed Detox Regimen/Protocol: Methadone [facility] Breath Alcohol Content Breath Alcohol Content: 0 Urine Drug Screen - Results Drug Screen Negative: No Urine Drug Screen Results: LUIS DANIEL-Cocaine, OPI-Opiates, MTD-Methadone
[2017-06-10] MEDS ORDERED: P-EPHED 60MG/TRIPROLIDI 2.5MG TABLET PO PRN (15:56)
[2017-06-10] MEDS ORDERED: ACETAMINOPHEN 325 MG TABLET (FP) PO PRN (15:56)
[2017-06-10] MEDS ORDERED: LOPERAMIDE HCL 2 MG CAPSULE PO PRN (15:56)
[2017-06-10] MEDS ORDERED: MAG HYDROX/AL HYDROX/SIMETH 30 ML UNIT-DOSE CUP PO PRN (15:56)
[2017-06-10] MEDS ORDERED: IBUPROFEN 400 MG TABLET (FP) PO PRN (15:56)
[2017-06-10] MEDS ORDERED: MAGNESIUM CITRATE 300 ML BOTTLE PO PRN (15:56)
[2017-06-10] MEDS ORDERED: MENTHOL/PHENOL 1 EACH UD MM PRN (15:56)
[2017-06-10] MEDS ORDERED: MAGNESIUM HYDROX 2400MG/30ML ORAL SUSPENSION 30 ML CUP PO PRN (15:56)
[2017-06-10] MEDS ORDERED: guaiFENesin/D-METHORPHAN HB 10 ML UNIT-DOSE CUPS PO PRN (15:56)
[2017-06-10] MEDS ORDERED: METHADONE HCL 10 MG TABLET (FOR DETOX USE ONLY) PO ONE ×2 (17:30→23:00)
[2017-06-10] MEDS: diazePAM 5 MG TABLET PO PRN ×2 (17:37→22:09)
[2017-06-10] MEDS ORDERED: ALBUTEROL SO4 18 GM HFA INHALER IH ONE (17:39)
[2017-06-10] MEDS: ALBUTEROL SO4 18 GM HFA INHALER IH PRN ×2 (17:40→22:12)
[2017-06-10] MEDS: THIAMINE HCL 100 MG TABLET (FP) PO SCH (22:09)
[2017-06-10] MEDS: MUPIROCIN 2% TOPICAL OINTMENT 22 GM TUBE TP SCH (22:11)
[2017-06-10] MEDS: hydrOXYzine PAMOATE 50 MG CAPSULE (FP) PO PRN (22:11)
[2017-06-10 23:26] LABS: URINE APPEARANCE CLEAR; URINE BILIRUBIN NEGATIVE (NEGATIVE); URINE BLOOD NEGATIVE (NEGATIVE); URINE COLOR YELLOW; URINE GLUCOSE (UA) NEGATIVE (NEGATIVE); URINE KETONE NEGATIVE (NEGATIVE); URINE LEUK ESTERASE NEGATIVE (NEGATIVE); URINE NITRITE NEGATIVE (NEGATIVE); URINE PROTEIN NEGATIVE (NEGATIVE); URINE UROBILINOGEN NEGATIVE mg/dL (0.2-1.0)
[2017-06-11] MEDS: ALBUTEROL SO4 18 GM HFA INHALER IH PRN ×5 (06:04→22:41)
[2017-06-11] MEDS: diazePAM 5 MG TABLET PO PRN ×5 (06:04→22:56)
[2017-06-11] MEDS: MUPIROCIN 2% TOPICAL OINTMENT 22 GM TUBE TP SCH ×3 (06:04→22:40)
[2017-06-11] MEDS ORDERED: METHADONE HCL 10 MG TABLET (FOR DETOX USE ONLY) PO ONE (10:00)
[2017-06-11] MEDS: PRENATAL VITAMINS W/ FOLIC ACID TABLET (FP) PO SCH (10:39)
[2017-06-11 10:45] LABS: HEMATOCRIT 43.3 % (35.4-49); MCH 27.4 pg (25.7-33.7); MCHC 32.2 g/dl (32.0-35.9); MEAN CELL VOLUME 84.9 fl (80-96); MEAN PLT VOLUME 9.9 fl (7.5-11.1); PLATELET COUNT 221 K/MM3 (134-434); RDW 13.6 % (11.9-15.9); WHITE BLOOD COUNT 7.8 K/mm3 (4.0-10.0)
[2017-06-11 10:50] LABS: CHLORIDE 105 mmol/L (98-107); POTASSIUM 3.4 mmol/L (3.5-5.1); SODIUM 141 mmol/L (136-145)
[2017-06-11 11:01] LABS: ALBUMIN 3.3 g/dl (3.4-5.0); ALK PHOS 58 U/L (45-117); ANION GAP 10 (8-16); BILIRUBIN,TOTAL 0.4 mg/dL (0.2-1.0); BLOOD UREA NITROGEN 16 mg/dL (7-18); CALCIUM 8.1 mg/dL (8.5-10.1); CO2 26 mmol/L (21-32); GLUCOSE,RANDOM 140 mg/dL (74-106); SGOT/AST 13 U/L (15-37); SGPT/ALT 20 U/L (12-78); TOT PROT 6.1 g/dl (6.4-8.2)
--- NOTE | 2017-06-11 11:38 | CONSULT ---
[facility] Psychiatric Consult - Data Date of interview: 06/11/17 Admission source: [facility] Identifying data: Readmission to [facility] for this 37 y/o male seeking detox treatment on for heroin and cocaine dependence.Patient is single,father of two,domiciled (lives with sister),unemployed and supported on food stamps. Substance Abuse History: Confirmed by patient in this interview.Details included in current [facility] report : Smoking history: Never smoked. Have you smoked in the past 12 months: No. Hx Chewing Tobacco Use: No. Initiated information on smoking cessation: No. - Substance & Tx. History. Hx Alcohol Use: No. Hx Substance Use: Yes. Substance Use Type: Cocaine, Heroin. Hx Substance Use Treatment: Yes (04/2017 [facility] detox). - Substances Abused. * * Heroin. Route: Inhalation. Frequency: Daily. Amount used: 25 bags. Age of first use: 31. Date of Last Use: 06/10/17. Cocaine. Route: Inhalation. Frequency: Daily. Amount used: 2 baGS. Age of first use: 27. Date of Last Use : 06/08/17 Medical History: Bronchial asthma. Psychiatric History: Patient denies. Physical/Sexual Abuse/Trauma History: No reported history of abuse. Additional Comment: Urine Drug Screen Results: LUIS DANIEL-Cocaine, OPI-Opiates, MTD- Methadone.Noted. Mental Status Exam - Mental Status Exam Alert and Oriented to: Time, Place, Person Cognitive Function: Good Patient Appearance: Unkempt, Disheveled Mood: Nervous, Anxious Affect: Mood Congruent Patient Behavior: Cooperative Speech Pattern: Clear, Appropriate (in surinamese) Voice Loudness: Normal Thought Process: Intact, Goal Oriented Thought Disorder: Not Present Hallucinations: Denies Suicidal Ideation: Denies Homicidal Ideation: Denies Insight/Judgement: Poor Sleep: Poorly (wants seroquel), Difficulty falling asleep Appetite: Good Muscle strength/Tone: Normal Gait/Station: Normal Psychiatric Findings - Problem List ([place] 1, 2,3) (1) Opioid dependence with withdrawal Current Visit: Yes Status: Acute (2) Cocaine dependence, uncomplicated Current Visit: Yes Status: Acute (3) Insomnia Current Visit: Yes Status: Chronic - Initial Treatment Plan Initial Treatment Plan: Old records revisited.Psychoeducation provided in this session.Detoxification in progress.Seroquel 50 mg po hs (patient's specific request).Side effects/benefits discussed with patient.Consent (verbal) given for this careplan.Observation.
--- NOTE | 2017-06-11 12:00 | PN ---
S COWS - Scale Resting Pulse: 0= [place] 80 or Below Sweatin=Flushed/Facial Moisture Restless Observation: 1= Difficult to Sit Still Pupil Size: 0= Normal to Room Light Bone or Joint Aches: 2= Severe Diffuse Aches Runny Nose/ Eye Tearin= Nasal Congestion GI Upset > 30mins: 2= Nausea/Diarrhea Tremor Observation of Outstretched Hands: 2= Slight Tremor Visible Yawning Observation: 1= 1-2x During Session Anxiety or Irritability: 2=Irritable/Anxious Goose Flesh Skin: 3=Piloerection COWS Score: 16 S Progress Note (SOAP) Subjective: Sweats, shakes,diarrhea,back pain Objective: 06/11/17 11:58 Vital Signs - 8 hr 06/11/17 06/11/17 06:32 09:17 Temperature 96.7 F L 97.2 F L Pulse Rate 79 106 H Respiratory 18 20 Rate Blood Pressure 119/78 121/60 Laboratory Last Values WBC 7.8 K/mm3 (4.0-10.0) 06/11/17 08:00 RBC 5.10 M/mm3 (4.00-5.60) 06/11/17 08:00 Hgb 14.0 GM/dL (11.7-16.9) 06/11/17 08:00 Hct 43.3 % (35.4-49) 06/11/17 08:00 MCV 84.9 fl (80-96) 06/11/17 08:00 MCH 27.4 pg (25.7-33.7) 06/11/17 08:00 MCHC 32.2 g/dl (32.0-35.9) 06/11/17 08:00 RDW 13.6 % (11.9-15.9) 06/11/17 08:00 Plt Count 221 K/MM3 (134-434) 06/11/17 08:00 MPV 9.9 fl (7.5-11.1) 06/11/17 08:00 Sodium 141 mmol/L (136-145) 06/11/17 08:00 Potassium 3.4 mmol/L (3.5-5.1) L 06/11/17 08:00 Chloride 105 mmol/L (98-107) 06/11/17 08:00 Carbon Dioxide 26 mmol/L (21-32) 06/11/17 08:00 Anion Gap 10 (8-16) 06/11/17 08:00 BUN 16 mg/dL (7-18) D 06/11/17 08:00 Creatinine 1.0 mg/dL (0.7-1.3) D 06/11/17 08:00 Creat Clearance w eGFR > 60 (>60) 06/11/17 08:00 Random Glucose 140 mg/dL (74-106) H D 06/11/17 08:00 Calcium 8.1 mg/dL (8.5-10.1) L 06/11/17 08:00 Total Bilirubin 0.4 mg/dL (0.2-1.0) 06/11/17 08:00 AST 13 U/L (15-37) L D 06/11/17 08:00 ALT 20 U/L (12-78) 06/11/17 08:00 Alkaline Phosphatase 58 U/L (45-117) 06/11/17 08:00 Total Protein 6.1 g/dl (6.4-8.2) L 06/11/17 08:00 Albumin 3.3 g/dl (3.4-5.0) L 06/11/17 08:00 Urine Color Yellow 06/10/17 21:00 Urine Appearance Clear 06/10/17 21:00 Urine pH 5.0 (5.0-8.0) D 06/10/17 21:00 Ur Specific [place] 1.025 (1.001-1.035) 06/10/17 21:00 Urine Protein Negative (NEGATIVE) 06/10/17 21:00 Urine Glucose (UA) Negative (NEGATIVE) 06/10/17 21:00 Urine Ketones Negative (NEGATIVE) 06/10/17 21:00 Urine Blood Negative (NEGATIVE) 06/10/17 21:00 Urine Nitrite Negative (NEGATIVE) 06/10/17 21:00 Urine Bilirubin Negative (NEGATIVE) 06/10/17 21:00 Urine Urobilinogen Negative mg/dL (0.2-1.0) 06/10/17 21:00 Ur Leukocyte Esterase Negative (NEGATIVE) 06/10/17 21:00 HIV 1&2 Antibody Screen Negative 06/11/17 08:00 HIV P24 Antigen Negative 06/11/17 08:00 Labs noted Self inflicted facial lesions from picking at pimples Assessment: 06/11/17 11:59 Withdrawal sx Plan: Continue detox
--- NOTE | 2017-06-11 16:55 | EKG ---
Test Reason : Blood Pressure : / mmHG Vent. Rate : 089 BPM Atrial Rate : 089 BPM P-R Int : 140 ms QRS Dur : 090 ms QT Int : 362 ms P-R-T Axes : 072 076 049 degrees QTc Int : 440 ms NORMAL SINUS RHYTHM POSSIBLE LEFT ATRIAL ENLARGEMENT BORDERLINE ECG WHEN COMPARED WITH ECG OF 05-MAY-2017 19:27, NO SIGNIFICANT CHANGE WAS FOUND Confirmed by MANNY PLASENCIA MD ([id number]) on 06/11/2017 4:55:31 PM Referred By: Confirmed By:MANNY PLASENCIA MD
[2017-06-11] MEDS ORDERED: QUEtiapine FUMARATE 50 MG TABLET PO SCH (22:00)
[2017-06-11] MEDS: hydrOXYzine PAMOATE 50 MG CAPSULE (FP) PO PRN (22:39)
[2017-06-11] MEDS: QUEtiapine FUMARATE 50 MG TABLET PO SCH (22:39)
[2017-06-11] MEDS: THIAMINE HCL 100 MG TABLET (FP) PO SCH (22:39)
[2017-06-12] MEDS: MUPIROCIN 2% TOPICAL OINTMENT 22 GM TUBE TP SCH ×3 (05:55→22:34)
[2017-06-12] MEDS: diazePAM 5 MG TABLET PO PRN ×5 (05:55→23:07)
[2017-06-12] MEDS: ALBUTEROL SO4 18 GM HFA INHALER IH PRN ×5 (05:56→23:08)
[2017-06-12] MEDS: PRENATAL VITAMINS W/ FOLIC ACID TABLET (FP) PO SCH (09:55)
[2017-06-12] MEDS: hydrOXYzine PAMOATE 50 MG CAPSULE (FP) PO PRN ×2 (09:58→22:34)
[2017-06-12] MEDS ORDERED: METHADONE HCL 5 MG TABLET (FOR DETOX USE ONLY) PO ONE (10:00)
[2017-06-12] MEDS ORDERED: POTASSIUM CHLORIDE TABS 20 MEQ TABLET.ER (FP) PO ONE (15:54)
--- NOTE | 2017-06-12 16:16 | PN ---
S COWS - Scale Resting Pulse: 1= [place] 81-100 Sweatin=Flushed/Facial Moisture Restless Observation: 1= Difficult to Sit Still Pupil Size: 0= Normal to Room Light Bone or Joint Aches: 1= Mild Discomfort Runny Nose/ Eye Tearin= Nasal Congestion GI Upset > 30mins: 1= Stomach Cramp Tremor Observation of Outstretched Hands: 2= Slight Tremor Visible Yawning Observation: 1= 1-2x During Session Anxiety or Irritability: 2=Irritable/Anxious Goose Flesh Skin: 0=Smooth Skin COWS Score: 12 [facility] Progress Note (SOAP) Subjective: nausea nasal congestion tremors Objective: 06/12/17 16:15 no acute distress noted Vital Signs Temperature 97.1 F L 06/12/17 14:22 Pulse Rate 96 H 06/12/17 14:22 Respiratory Rate 18 06/12/17 14:22 Blood Pressure 123/80 06/12/17 14:22 O2 Sat by Pulse Oximetry (%) Laboratory Last Values WBC 7.8 K/mm3 (4.0-10.0) 06/11/17 08:00 RBC 5.10 M/mm3 (4.00-5.60) 06/11/17 08:00 Hgb 14.0 GM/dL (11.7-16.9) 06/11/17 08:00 Hct 43.3 % (35.4-49) 06/11/17 08:00 MCV 84.9 fl (80-96) 06/11/17 08:00 MCH 27.4 pg (25.7-33.7) 06/11/17 08:00 MCHC 32.2 g/dl (32.0-35.9) 06/11/17 08:00 RDW 13.6 % (11.9-15.9) 06/11/17 08:00 Plt Count 221 K/MM3 (134-434) 06/11/17 08:00 MPV 9.9 fl (7.5-11.1) 06/11/17 08:00 Sodium 141 mmol/L (136-145) 06/11/17 08:00 Potassium 3.4 mmol/L (3.5-5.1) L 06/11/17 08:00 Chloride 105 mmol/L (98-107) 06/11/17 08:00 Carbon Dioxide 26 mmol/L (21-32) 06/11/17 08:00 Anion Gap 10 (8-16) 06/11/17 08:00 BUN 16 mg/dL (7-18) D 06/11/17 08:00 Creatinine 1.0 mg/dL (0.7-1.3) D 06/11/17 08:00 Creat Clearance w eGFR > 60 (>60) 06/11/17 08:00 Random Glucose 140 mg/dL (74-106) H D 06/11/17 08:00 Calcium 8.1 mg/dL (8.5-10.1) L 06/11/17 08:00 Total Bilirubin 0.4 mg/dL (0.2-1.0) 06/11/17 08:00 AST 13 U/L (15-37) L D 06/11/17 08:00 ALT 20 U/L (12-78) 06/11/17 08:00 Alkaline Phosphatase 58 U/L (45-117) 06/11/17 08:00 Total Protein 6.1 g/dl (6.4-8.2) L 06/11/17 08:00 Albumin 3.3 g/dl (3.4-5.0) L 06/11/17 08:00 Urine Color Yellow 06/10/17 21:00 Urine Appearance Clear 06/10/17 21:00 Urine pH 5.0 (5.0-8.0) D 06/10/17 21:00 Ur Specific [place] 1.025 (1.001-1.035) 06/10/17 21:00 Urine Protein Negative (NEGATIVE) 06/10/17 21:00 Urine Glucose (UA) Negative (NEGATIVE) 06/10/17 21:00 Urine Ketones Negative (NEGATIVE) 06/10/17 21:00 Urine Blood Negative (NEGATIVE) 06/10/17 21:00 Urine Nitrite Negative (NEGATIVE) 06/10/17 21:00 Urine Bilirubin Negative (NEGATIVE) 06/10/17 21:00 Urine Urobilinogen Negative mg/dL (0.2-1.0) 06/10/17 21:00 Ur Leukocyte Esterase Negative (NEGATIVE) 06/10/17 21:00 RPR Titer Nonreactive (NONREACTIVE) 06/11/17 08:00 HIV 1&2 Antibody Screen Negative 06/11/17 08:00 HIV P24 Antigen Negative 06/11/17 08:00 labs noted. low potassium Assessment: 06/12/17 16:17 withdrawal symptoms hypotassemia Plan: continue detox potassium supplements
[2017-06-12] MEDS: QUEtiapine FUMARATE 50 MG TABLET PO SCH (22:34)
[2017-06-12] MEDS: THIAMINE HCL 100 MG TABLET (FP) PO SCH (22:34)
[2017-06-13] MEDS: ALBUTEROL SO4 18 GM HFA INHALER IH PRN ×3 (05:42→16:44)
[2017-06-13] MEDS: diazePAM 5 MG TABLET PO PRN ×3 (05:42→12:55)
[2017-06-13] MEDS: MUPIROCIN 2% TOPICAL OINTMENT 22 GM TUBE TP SCH ×3 (05:42→22:22)
[2017-06-13] MEDS ORDERED: METHADONE HCL 5 MG TABLET (FOR DETOX USE ONLY) PO ONE (10:00)
[2017-06-13] MEDS: hydrOXYzine PAMOATE 50 MG CAPSULE (FP) PO PRN ×2 (10:09→22:23)
[2017-06-13] MEDS: PRENATAL VITAMINS W/ FOLIC ACID TABLET (FP) PO SCH (10:09)
[2017-06-13] MEDS: POTASSIUM CHLORIDE TABS 20 MEQ TABLET.ER (FP) PO SCH ×2 (10:09→19:19)
[2017-06-13] MEDS ORDERED: FLU VACCINE QUAD 60 MCG/0.5 ML (MDV 17-18) IM ONE (12:00)
--- NOTE | 2017-06-13 14:43 | PN ---
B[facility] Progress Note (SOAP) Subjective: SLIGHT ANXIETY,SWEATS,INTERMITTENT SLEEP. Objective: 06/13/17 14:42 Vital Signs Temperature 97.7 F 06/13/17 13:44 Pulse Rate 100 H 06/13/17 13:44 Respiratory Rate 18 06/13/17 13:44 Blood Pressure 125/80 06/13/17 13:44 O2 Sat by Pulse Oximetry (%) Laboratory Last Values WBC 7.8 K/mm3 (4.0-10.0) 06/11/17 08:00 RBC 5.10 M/mm3 (4.00-5.60) 06/11/17 08:00 Hgb 14.0 GM/dL (11.7-16.9) 06/11/17 08:00 Hct 43.3 % (35.4-49) 06/11/17 08:00 MCV 84.9 fl (80-96) 06/11/17 08:00 MCH 27.4 pg (25.7-33.7) 06/11/17 08:00 MCHC 32.2 g/dl (32.0-35.9) 06/11/17 08:00 RDW 13.6 % (11.9-15.9) 06/11/17 08:00 Plt Count 221 K/MM3 (134-434) 06/11/17 08:00 MPV 9.9 fl (7.5-11.1) 06/11/17 08:00 Sodium 141 mmol/L (136-145) 06/11/17 08:00 Potassium 3.4 mmol/L (3.5-5.1) L 06/11/17 08:00 Chloride 105 mmol/L (98-107) 06/11/17 08:00 Carbon Dioxide 26 mmol/L (21-32) 06/11/17 08:00 Anion Gap 10 (8-16) 06/11/17 08:00 BUN 16 mg/dL (7-18) D 06/11/17 08:00 Creatinine 1.0 mg/dL (0.7-1.3) D 06/11/17 08:00 Creat Clearance w eGFR > 60 (>60) 06/11/17 08:00 Random Glucose 140 mg/dL (74-106) H D 06/11/17 08:00 Calcium 8.1 mg/dL (8.5-10.1) L 06/11/17 08:00 Total Bilirubin 0.4 mg/dL (0.2-1.0) 06/11/17 08:00 AST 13 U/L (15-37) L D 06/11/17 08:00 ALT 20 U/L (12-78) 06/11/17 08:00 Alkaline Phosphatase 58 U/L (45-117) 06/11/17 08:00 Total Protein 6.1 g/dl (6.4-8.2) L 06/11/17 08:00 Albumin 3.3 g/dl (3.4-5.0) L 06/11/17 08:00 Urine Color Yellow 06/10/17 21:00 Urine Appearance Clear 06/10/17 21:00 Urine pH 5.0 (5.0-8.0) D 06/10/17 21:00 Ur Specific [place] 1.025 (1.001-1.035) 06/10/17 21:00 Urine Protein Negative (NEGATIVE) 06/10/17 21:00 Urine Glucose (UA) Negative (NEGATIVE) 06/10/17 21:00 Urine Ketones Negative (NEGATIVE) 06/10/17 21:00 Urine Blood Negative (NEGATIVE) 06/10/17 21:00 Urine Nitrite Negative (NEGATIVE) 06/10/17 21:00 Urine Bilirubin Negative (NEGATIVE) 06/10/17 21:00 Urine Urobilinogen Negative mg/dL (0.2-1.0) 06/10/17 21:00 Ur Leukocyte Esterase Negative (NEGATIVE) 06/10/17 21:00 RPR Titer Nonreactive (NONREACTIVE) 06/11/17 08:00 HIV 1&2 Antibody Screen Negative 06/11/17 08:00 HIV P24 Antigen Negative 06/11/17 08:00 Assessment: 06/13/17 14:43 WITHDRAWAL SX Plan: CONTINUE DETOX
[2017-06-13] MEDS: THIAMINE HCL 100 MG TABLET (FP) PO SCH (22:22)
[2017-06-13] MEDS: QUEtiapine FUMARATE 50 MG TABLET PO SCH (22:22)
[2017-06-14] MEDS: MUPIROCIN 2% TOPICAL OINTMENT 22 GM TUBE TP SCH ×3 (06:57→22:00)
[2017-06-14] MEDS ORDERED: METHADONE HCL 10 MG TABLET (FOR DETOX USE ONLY) PO ONE (10:00)
[2017-06-14] MEDS: POTASSIUM CHLORIDE TABS 20 MEQ TABLET.ER (FP) PO SCH ×2 (10:40→17:20)
[2017-06-14] MEDS: PRENATAL VITAMINS W/ FOLIC ACID TABLET (FP) PO SCH (10:41)
[2017-06-14] MEDS ORDERED: ALBUTEROL SO4 18 GM HFA INHALER IH ONE (10:43)
[2017-06-14] MEDS: ALBUTEROL SO4 18 GM HFA INHALER IH PRN (10:44)
--- NOTE | 2017-06-14 11:43 | PN ---
[facility] Progress Note (SOAP) Subjective: FATIGUE, IRRITABILITY, SWEATS. Objective: 06/14/17 11:45 Vital Signs Temperature 97.3 F L 06/14/17 10:14 Pulse Rate 113 H 06/14/17 10:14 Respiratory Rate 18 06/14/17 10:14 Blood Pressure 137/85 06/14/17 10:14 O2 Sat by Pulse Oximetry (%) Laboratory Last Values WBC 7.8 K/mm3 (4.0-10.0) 06/11/17 08:00 RBC 5.10 M/mm3 (4.00-5.60) 06/11/17 08:00 Hgb 14.0 GM/dL (11.7-16.9) 06/11/17 08:00 Hct 43.3 % (35.4-49) 06/11/17 08:00 MCV 84.9 fl (80-96) 06/11/17 08:00 MCH 27.4 pg (25.7-33.7) 06/11/17 08:00 MCHC 32.2 g/dl (32.0-35.9) 06/11/17 08:00 RDW 13.6 % (11.9-15.9) 06/11/17 08:00 Plt Count 221 K/MM3 (134-434) 06/11/17 08:00 MPV 9.9 fl (7.5-11.1) 06/11/17 08:00 Sodium 141 mmol/L (136-145) 06/11/17 08:00 Potassium 3.4 mmol/L (3.5-5.1) L 06/11/17 08:00 Chloride 105 mmol/L (98-107) 06/11/17 08:00 Carbon Dioxide 26 mmol/L (21-32) 06/11/17 08:00 Anion Gap 10 (8-16) 06/11/17 08:00 BUN 16 mg/dL (7-18) D 06/11/17 08:00 Creatinine 1.0 mg/dL (0.7-1.3) D 06/11/17 08:00 Creat Clearance w eGFR > 60 (>60) 06/11/17 08:00 Random Glucose 140 mg/dL (74-106) H D 06/11/17 08:00 Calcium 8.1 mg/dL (8.5-10.1) L 06/11/17 08:00 Total Bilirubin 0.4 mg/dL (0.2-1.0) 06/11/17 08:00 AST 13 U/L (15-37) L D 06/11/17 08:00 ALT 20 U/L (12-78) 06/11/17 08:00 Alkaline Phosphatase 58 U/L (45-117) 06/11/17 08:00 Total Protein 6.1 g/dl (6.4-8.2) L 06/11/17 08:00 Albumin 3.3 g/dl (3.4-5.0) L 06/11/17 08:00 Urine Color Yellow 06/10/17 21:00 Urine Appearance Clear 06/10/17 21:00 Urine pH 5.0 (5.0-8.0) D 06/10/17 21:00 Ur Specific [place] 1.025 (1.001-1.035) 06/10/17 21:00 Urine Protein Negative (NEGATIVE) 06/10/17 21:00 Urine Glucose (UA) Negative (NEGATIVE) 06/10/17 21:00 Urine Ketones Negative (NEGATIVE) 06/10/17 21:00 Urine Blood Negative (NEGATIVE) 06/10/17 21:00 Urine Nitrite Negative (NEGATIVE) 06/10/17 21:00 Urine Bilirubin Negative (NEGATIVE) 06/10/17 21:00 Urine Urobilinogen Negative mg/dL (0.2-1.0) 06/10/17 21:00 Ur Leukocyte Esterase Negative (NEGATIVE) 06/10/17 21:00 RPR Titer Nonreactive (NONREACTIVE) 06/11/17 08:00 HIV 1&2 Antibody Screen Negative 06/11/17 08:00 HIV P24 Antigen Negative 06/11/17 08:00 Assessment: 06/14/17 11:45 WITHDRAWAL SX Plan: CONTINUE DETOX
[2017-06-14] MEDS: THIAMINE HCL 100 MG TABLET (FP) PO SCH (21:59)
[2017-06-14] MEDS: QUEtiapine FUMARATE 50 MG TABLET PO SCH (22:00)
[2017-06-15] MEDS: MUPIROCIN 2% TOPICAL OINTMENT 22 GM TUBE TP SCH (05:02)
[2017-06-15] MEDS: ALBUTEROL SO4 18 GM HFA INHALER IH PRN ×2 (05:02→10:20)
[2017-06-15] MEDS ORDERED: METHADONE HCL 5 MG TABLET (FOR DETOX USE ONLY) PO ONE (06:00)
[2017-06-15 09:20] VITALS: BP 138/89; PULSE 108; TEMP 96.3
[2017-06-15] MEDS: POTASSIUM CHLORIDE TABS 20 MEQ TABLET.ER (FP) PO SCH (10:31)
[2017-06-15] MEDS: PRENATAL VITAMINS W/ FOLIC ACID TABLET (FP) PO SCH (10:31)
--- NOTE | 2017-06-15 12:28 | DS ---
[facility] Detox Discharge Summary Admission Date: 06/10/17 Discharge Date: 06/15/17 - History Present History: Cannabis Dependence, Cocaine Dependence, Opioid Dependence Additional Comments: DETOX COMPLETED. ALERT O X 3. NAD. REFERRED TO REHAB TODAY. Pertinent Past History: ASTHMA - Physical Exam Results Vital Signs: Vital Signs Temperature 96.3 F L 06/15/17 09:19 Pulse Rate 108 H 06/15/17 09:19 Respiratory Rate 18 06/15/17 09:19 Blood Pressure 138/89 06/15/17 09:19 O2 Sat by Pulse Oximetry (%) Pertinent Admission Physical Exam Findings: WITHDRAWAL SX Laboratory Last Values WBC 7.8 K/mm3 (4.0-10.0) 06/11/17 08:00 RBC 5.10 M/mm3 (4.00-5.60) 06/11/17 08:00 Hgb 14.0 GM/dL (11.7-16.9) 06/11/17 08:00 Hct 43.3 % (35.4-49) 06/11/17 08:00 MCV 84.9 fl (80-96) 06/11/17 08:00 MCH 27.4 pg (25.7-33.7) 06/11/17 08:00 MCHC 32.2 g/dl (32.0-35.9) 06/11/17 08:00 RDW 13.6 % (11.9-15.9) 06/11/17 08:00 Plt Count 221 K/MM3 (134-434) 06/11/17 08:00 MPV 9.9 fl (7.5-11.1) 06/11/17 08:00 Sodium 141 mmol/L (136-145) 06/11/17 08:00 Potassium 3.4 mmol/L (3.5-5.1) L 06/11/17 08:00 Chloride 105 mmol/L (98-107) 06/11/17 08:00 Carbon Dioxide 26 mmol/L (21-32) 06/11/17 08:00 Anion Gap 10 (8-16) 06/11/17 08:00 BUN 16 mg/dL (7-18) D 06/11/17 08:00 Creatinine 1.0 mg/dL (0.7-1.3) D 06/11/17 08:00 Creat Clearance w eGFR > 60 (>60) 06/11/17 08:00 Random Glucose 140 mg/dL (74-106) H D 06/11/17 08:00 Calcium 8.1 mg/dL (8.5-10.1) L 06/11/17 08:00 Total Bilirubin 0.4 mg/dL (0.2-1.0) 06/11/17 08:00 AST 13 U/L (15-37) L D 06/11/17 08:00 ALT 20 U/L (12-78) 06/11/17 08:00 Alkaline Phosphatase 58 U/L (45-117) 06/11/17 08:00 Total Protein 6.1 g/dl (6.4-8.2) L 06/11/17 08:00 Albumin 3.3 g/dl (3.4-5.0) L 06/11/17 08:00 Urine Color Yellow 06/10/17 21:00 Urine Appearance Clear 06/10/17 21:00 Urine pH 5.0 (5.0-8.0) D 06/10/17 21:00 Ur Specific [place] 1.025 (1.001-1.035) 06/10/17 21:00 Urine Protein Negative (NEGATIVE) 06/10/17 21:00 Urine Glucose (UA) Negative (NEGATIVE) 06/10/17 21:00 Urine Ketones Negative (NEGATIVE) 06/10/17 21:00 Urine Blood Negative (NEGATIVE) 06/10/17 21:00 Urine Nitrite Negative (NEGATIVE) 06/10/17 21:00 Urine Bilirubin Negative (NEGATIVE) 06/10/17 21:00 Urine Urobilinogen Negative mg/dL (0.2-1.0) 06/10/17 21:00 Ur Leukocyte Esterase Negative (NEGATIVE) 06/10/17 21:00 RPR Titer Nonreactive (NONREACTIVE) 06/11/17 08:00 HIV 1&2 Antibody Screen Negative 06/11/17 08:00 HIV P24 Antigen Negative 06/11/17 08:00 BORDERLINE HYPOKALEMIA TREATED. - Treatment Hospital Course: Detox Protocol Followed, Detoxed Safely, Responded well, Discharged Condition Good, Rehab Referral Accepted Patient has Accepted a Rehab Referral to: [address] - Medication Discharge Medications: Ambulatory Orders Albuterol Sulfate Inhaler - [Ventolin Hfa Inhaler -] 2 inh PO Q4H PRN #1 inhaler 05/10/17 - Diagnosis (1) Opioid dependence with withdrawal Status: Acute (2) Asthma Status: Chronic Qualifiers: Asthma severity: mild Asthma persistence: unspecified Asthma complication type: with status asthmaticus Qualified Code(s): J45.902 - Unspecified asthma with status asthmaticus (3) Cocaine dependence, uncomplicated Status: Acute (4) Hypokalemia Status: Acute - AMA Did Patient Leave Against Medical Advice: No
== END 2017-06-15 12:02 | disposition other institution (70) | DRG 773 ==
LOC: YASAS 10:32 → Y3N 16:29
PROVIDERS: ADMIT Internal Medicine; ATTEND Internal Medicine
PROC: HZ2ZZZZ Detoxification Services for Substance Abuse Treatment (ICD-10-PCS; principal; 2017-06-10)
DX: F11.23 Opioid dependence with withdrawal (principal); F14.20 Cocaine dependence, uncomplicated; F19.24 Other psychoactive substance dependence with psychoactive substance-induced mood disorder; J45.902 Unspecified asthma with status asthmaticus; E87.6 Hypokalemia; G47.00 Insomnia, unspecified
CPT/HCPCS: 36415; 80053; 81003; 85027; 86593; 87389; 90688; 93005; 93010

== ENCOUNTER 2017-06-15 12:25 | Inpatient (IN) | payer OTHER ==
[2017-06-15] MEDS ORDERED: MAGNESIUM HYDROX 2400MG/30ML ORAL SUSPENSION 30 ML CUP PO PRN (14:34)
[2017-06-15] MEDS ORDERED: LOPERAMIDE HCL 2 MG CAPSULE PO PRN (14:34)
[2017-06-15] MEDS ORDERED: MENTHOL/PHENOL 1 EACH UD MM PRN (14:34)
[2017-06-15] MEDS ORDERED: MAG HYDROX/AL HYDROX/SIMETH 30 ML UNIT-DOSE CUP PO PRN (14:34)
[2017-06-15] MEDS ORDERED: MAGNESIUM CITRATE 300 ML BOTTLE PO PRN (14:34)
[2017-06-15] MEDS ORDERED: P-EPHED 60MG/TRIPROLIDI 2.5MG TABLET PO PRN (14:34)
[2017-06-15] MEDS ORDERED: IBUPROFEN 400 MG TABLET (FP) PO PRN (14:34)
[2017-06-15] MEDS ORDERED: NICOTINE POLACRILEX 2 MG GUM BUC PRN (14:34)
[2017-06-15] MEDS ORDERED: guaiFENesin/D-METHORPHAN HB 10 ML UNIT-DOSE CUPS PO PRN (14:34)
--- NOTE | 2017-06-15 14:34 | HP ---
[facility] Rehab Assess/Revision - Admission History Admitted to Rehab from: [facility] Date of Admission to Rehab: 06/15/2017 - Vital signs Vital Signs: Vital Signs Period Temp Pulse Resp BP Sys/Steven Pulse Ox Last 24 Hr 97.1 F 105 20 139/80 - Findings Detox History & Physical reviewed: Yes Concur with findings: Yes Inpatient Rehab Admission - Initial Determination Are CD services needed?: Yes Free of communicable disease: Yes Not in need of hospitalization: Yes - Rehab Admission Criteria Comorbidities: Yes Patient is meeting Inpatient Rehab admission criteria:: Yes
[2017-06-15] MEDS ORDERED: POTASSIUM CHLORIDE TABS 20 MEQ TABLET.ER (FP) PO ONE (14:35)
[2017-06-15] MEDS: THIAMINE HCL 100 MG TABLET (FP) PO SCH (21:10)
[2017-06-15] MEDS: hydrOXYzine PAMOATE 50 MG CAPSULE (FP) PO PRN (21:11)
[2017-06-15] MEDS: ALBUTEROL SO4 18 GM HFA INHALER IH PRN (21:12)
[2017-06-16] MEDS: ALBUTEROL SO4 18 GM HFA INHALER IH PRN ×3 (06:03→23:49)
[2017-06-16] MEDS: PRENATAL VITAMINS W/ FOLIC ACID TABLET (FP) PO SCH (09:37)
[2017-06-16] MEDS: NICOTINE 14 MG/24 HOURS TOPICAL PATCH TD SCH (09:37)
--- NOTE | 2017-06-16 11:38 | PN ---
[facility] Progress Note (SOAP) Subjective: c/o acne on face Objective: 06/16/17 11:37 Vital Signs - 8 hr 06/16/17 06/16/17 03:57 06:50 Temperature 97.3 F L Pulse Rate 87 Respiratory 18 18 Rate Blood Pressure 113/76 labs revewied 06/16/17 11:37 acneiform eruption on face Assessment: 06/16/17 11:37 cleocin topical daily ordered bid
--- NOTE | 2017-06-16 12:06 | HP ---
Psychiatrist Admission - Data Date of interview: 06/16/17 Admission source: 3N Identifying data: This is the first 5N inpatient rehabilitation admission for this 37 year old male who is single a father of two (12 and 3), he is domiciled (lives with sister),unemployed and supported on food stamps. Medical History: Bronchial Asthma. Psychiatric History: Patient denies history of psychiatric hospitalizations, but was seen by while in detox sand started Seroquel 50 mf po hs for insomnia, patient reports marlys medications is effective. Physical/Sexual Abuse/Trauma History: Denies history of sexual, physical and verbal abuse. Vital Signs: Vital Signs - 24 hr 06/15/17 06/16/17 06/16/17 13:06 00:51 03:57 Temperature 97.1 F L Pulse Rate 105 H Respiratory 20 18 18 Rate Blood Pressure 139/80 06/16/17 06:50 Temperature 97.3 F L Pulse Rate 87 Respiratory 18 Rate Blood Pressure 113/76 Allergies/Adverse Reactions: Allergies Allergy/AdvReac Type Severity Reaction Status Date / Time No Known Allergies Allergy Verified 06/15/17 12:54 Date of last physical exam: 06/10/17 Concur with the findings of this exam: Yes - Substance Abuse/Tx History Hx Alcohol Use: No Hx Substance Use: Yes Substance Use Type: Cocaine (started at age of 27 , daily use 2 bags), Heroin ( started at age of 31, daily 25 bags ) Hx Substance Use Treatment: Yes (detox at [facility] 05/15) Mental Status Exam - Mental Status Exam Alert and Oriented to: Time, Place, Person Cognitive Function: Good Patient Appearance: Well Groomed Mood: Anxious Affect: Mood Congruent Patient Behavior: Appropriate, Cooperative Speech Pattern: Clear, Appropriate Voice Loudness: Normal Thought Process: Intact Thought Disorder: Not Present Hallucinations: Denies Suicidal Ideation: Denies Homicidal Ideation: Denies Insight/Judgement: Fair Sleep: Poorly Appetite: Fair Muscle strength/Tone: Normal Gait/Station: Normal Psychiatric Findings - Problem List ([place] 1, 2,3) (1) Cocaine dependence Current Visit: Yes Status: Acute (2) Opioid dependence Current Visit: Yes Status: Acute (3) Substance induced mood disorder Current Visit: No Status: Acute (4) Substance-induced sleep disorder Current Visit: No Status: Acute - Initial Treatment Plan Initial Treatment Plan: Will continue Seroquel 50 mg po hs, monitor progress as needed.
[2017-06-16] MEDS: CLINDAMYCIN PHOSPHATE 1% TOPICAL GEL 30 GM TUBE TP SCH ×2 (14:21→21:03)
[2017-06-16] MEDS ORDERED: PT OWN MED DRAWER 7, Y5N ONE (18:46)
[2017-06-16] MEDS: THIAMINE HCL 100 MG TABLET (FP) PO SCH (21:03)
[2017-06-16] MEDS: QUEtiapine FUMARATE 50 MG TABLET PO SCH (21:04)
[2017-06-17] MEDS: ALBUTEROL SO4 18 GM HFA INHALER IH PRN ×4 (04:20→21:06)
[2017-06-17] MEDS: NICOTINE 14 MG/24 HOURS TOPICAL PATCH TD SCH (09:37)
[2017-06-17] MEDS: PRENATAL VITAMINS W/ FOLIC ACID TABLET (FP) PO SCH (09:37)
[2017-06-17] MEDS: CLINDAMYCIN PHOSPHATE 1% TOPICAL GEL 30 GM TUBE TP SCH ×2 (09:37→21:05)
[2017-06-17] MEDS: hydrOXYzine PAMOATE 50 MG CAPSULE (FP) PO PRN (09:38)
[2017-06-17] MEDS: QUEtiapine FUMARATE 50 MG TABLET PO SCH (21:05)
[2017-06-17] MEDS: THIAMINE HCL 100 MG TABLET (FP) PO SCH (21:05)
[2017-06-18] MEDS: ALBUTEROL SO4 18 GM HFA INHALER IH PRN ×2 (03:48→18:58)
[2017-06-18] MEDS: CLINDAMYCIN PHOSPHATE 1% TOPICAL GEL 30 GM TUBE TP SCH ×2 (09:39→21:01)
[2017-06-18] MEDS: PRENATAL VITAMINS W/ FOLIC ACID TABLET (FP) PO SCH (09:39)
[2017-06-18] MEDS: NICOTINE 14 MG/24 HOURS TOPICAL PATCH TD SCH (09:39)
[2017-06-18] MEDS: ACETAMINOPHEN 325 MG TABLET (FP) PO PRN (16:34)
[2017-06-18] MEDS: QUEtiapine FUMARATE 50 MG TABLET PO SCH (21:01)
[2017-06-18] MEDS: THIAMINE HCL 100 MG TABLET (FP) PO SCH (21:01)
[2017-06-19] MEDS: CLINDAMYCIN PHOSPHATE 1% TOPICAL GEL 30 GM TUBE TP SCH ×2 (09:33→21:01)
[2017-06-19] MEDS: PRENATAL VITAMINS W/ FOLIC ACID TABLET (FP) PO SCH (09:33)
[2017-06-19] MEDS: ACETAMINOPHEN 325 MG TABLET (FP) PO PRN (09:34)
[2017-06-19] MEDS: NICOTINE 14 MG/24 HOURS TOPICAL PATCH TD SCH (09:35)
[2017-06-19] MEDS: ALBUTEROL SO4 18 GM HFA INHALER IH PRN (16:42)
[2017-06-19] MEDS: THIAMINE HCL 100 MG TABLET (FP) PO SCH (21:01)
[2017-06-19] MEDS: QUEtiapine FUMARATE 50 MG TABLET PO SCH (21:01)
[2017-06-20] MEDS: ALBUTEROL SO4 18 GM HFA INHALER IH PRN ×2 (06:29→21:12)
[2017-06-20] MEDS: PRENATAL VITAMINS W/ FOLIC ACID TABLET (FP) PO SCH (09:54)
[2017-06-20] MEDS: hydrOXYzine PAMOATE 50 MG CAPSULE (FP) PO PRN ×2 (09:54→21:10)
[2017-06-20] MEDS: NICOTINE 14 MG/24 HOURS TOPICAL PATCH TD SCH (09:54)
[2017-06-20] MEDS: CLINDAMYCIN PHOSPHATE 1% TOPICAL GEL 30 GM TUBE TP SCH ×2 (09:54→21:11)
[2017-06-20] MEDS: THIAMINE HCL 100 MG TABLET (FP) PO SCH (21:10)
[2017-06-20] MEDS: QUEtiapine FUMARATE 50 MG TABLET PO SCH (21:10)
[2017-06-21] MEDS: PRENATAL VITAMINS W/ FOLIC ACID TABLET (FP) PO SCH (09:48)
[2017-06-21] MEDS: CLINDAMYCIN PHOSPHATE 1% TOPICAL GEL 30 GM TUBE TP SCH ×2 (09:49→21:08)
[2017-06-21] MEDS: NICOTINE 14 MG/24 HOURS TOPICAL PATCH TD SCH (09:49)
--- NOTE | 2017-06-21 11:55 | PN ---
Psychiatric Progress Note Vital Signs: Vital Signs Period Temp Pulse Resp BP Sys/Steven Pulse Ox Last 24 Hr 97.4 F 81 18-18 121/69 Date of Session: 06/21/17 Chief Complaint:: progress update. HPI: Patient is addessing cocaine, opioid dependence comorbid subtance induced mood and sleep disorder. ROS: wnl Current Medications: Active Medications Generic Name Dose Route Start Last Admin Trade Name Freq PRN Reason Stop Dose Admin Acetaminophen 650 mg 06/15/17 14:34 06/19/17 09:34 Tylenol - PO 650 mg Q4H PRN Administration FEVER Al Hydroxide/Mg Hydroxide 30 ml 06/15/17 14:34 Mylanta Oral Suspension - PO Q6H PRN DYSPEPSIA Albuterol Sulfate 2 puff 06/15/17 14:34 06/20/17 21:12 Ventolin Hfa Inhaler - IH 2 puff Q4H PRN Administration ASTHMA Clindamycin Phosphate 1 applic 06/16/17 11:45 06/21/17 09:49 Cleocin 1% Gel - TP 1 applic BID ALEJO Administration Eucalyptus/Menthol/Phenol/Sorbitol 1 each 06/15/17 14:34 Cepastat Lozenge - MM Q4H PRN SORE THROAT Guaifenesin 10 ml 06/15/17 14:34 Robitussin Dm - PO Q6H PRN COUGH Hydroxyzine Pamoate 50 mg 06/15/17 14:34 06/20/17 21:10 Vistaril - PO 50 mg Q4H PRN Administration AGITATION Ibuprofen 400 mg 06/15/17 14:34 Motrin - PO Q6H PRN Pain Level 4-6 Loperamide HCl 4 mg 06/15/17 14:34 Imodium - PO Q6H PRN DIARRHEA Magnesium Citrate 300 ml 06/15/17 14:34 Citroma - PO Q48H PRN CONSTIPATION Magnesium Hydroxide 30 ml 06/15/17 14:34 Milk Of Magnesia - PO DAILY PRN CONSTIPATION Nicotine 14 mg 06/16/17 10:00 06/21/17 09:49 Nicoderm Patch - TD 14 mg DAILY ALEJO Administration Nicotine Polacrilex 2 mg 06/15/17 14:34 Nicorette Gum - BUC Q2H PRN NICOTINE REPLACEMENT RX Multivit/Folic Acid/Iron 1 tab 06/16/17 10:00 06/21/17 09:48 Vitamins (Sjr) - PO 1 tab DAILY ALEJO Administration Pseudoephedrine/Triprolidine 1 combo 06/15/17 14:34 Actifed - PO TID PRN NASAL CONGESTION Quetiapine Fumarate 150 mg 06/21/17 11:53 Seroquel - PO HS ALEJO Thiamine HCl 100 mg 06/15/17 22:00 06/20/17 21:10 Vitamin B1 - PO 100 mg HS ALEJO Administration Medication(s) Change(s): increase Seroquel 150 mg po hs. Current Side Effect: No Lab tests ordered: No Lab tests reviewed: Yes Provider note:: Patient was seen today, he generally ajusted well to the unit, attends groups, he reports that the longest period of time of abstinence has been six months and had many attempts in rehabilitations and and detox. programs. He reports he has a racing thoughts at nights which keeps him up all nights, he reports in the past was on 200 mg po of Seroquel. Psycheducations regarding medications provided, benefits, side-effects and treatment plan discusssed, patient agreed, will adjust seroquel 150 mg po hs, continue to monitor progress. Total face to face time:: 25 Mental Status Exam - Mental Status Exam Alert and Oriented to: Time, Place, Person Cognitive Function: Grossly Intact Patient Appearance: Well Groomed Mood: Sad, Anxious Affect: Appropriate, Mood Congruent Patient Behavior: Appropriate, Cooperative Speech Pattern: Appropriate Voice Loudness: Normal Thought Process: Intact, Goal Oriented Thought Disorder: Not Present Hallucinations: Denies Suicidal Ideation: Denies Homicidal Ideation: Denies Insight/Judgement: Fair Sleep: Poorly, Difficulty falling asleep Appetite: Fair Muscle strength/Tone: Normal Gait/Station: Normal Psychiatric Treatment Plan - Problem List (1) Cocaine dependence Current Visit: Yes (2) Opioid dependence Current Visit: Yes (3) Substance induced mood disorder Current Visit: No (4) Substance-induced sleep disorder Current Visit: No
[2017-06-21] MEDS: THIAMINE HCL 100 MG TABLET (FP) PO SCH (21:08)
[2017-06-21] MEDS: QUEtiapine FUMARATE 50 MG TABLET PO SCH (21:08)
[2017-06-21] MEDS: ALBUTEROL SO4 18 GM HFA INHALER IH PRN (21:09)
[2017-06-22] MEDS: ALBUTEROL SO4 18 GM HFA INHALER IH PRN ×2 (09:23→21:08)
[2017-06-22] MEDS: NICOTINE 14 MG/24 HOURS TOPICAL PATCH TD SCH (10:00)
[2017-06-22] MEDS: PRENATAL VITAMINS W/ FOLIC ACID TABLET (FP) PO SCH (10:00)
[2017-06-22] MEDS: CLINDAMYCIN PHOSPHATE 1% TOPICAL GEL 30 GM TUBE TP SCH ×2 (10:01→21:07)
[2017-06-22] MEDS: QUEtiapine FUMARATE 50 MG TABLET PO SCH (21:07)
[2017-06-22] MEDS: THIAMINE HCL 100 MG TABLET (FP) PO SCH (21:07)
[2017-06-23] MEDS: ALBUTEROL SO4 18 GM HFA INHALER IH PRN ×3 (06:23→21:19)
[2017-06-23] MEDS: PRENATAL VITAMINS W/ FOLIC ACID TABLET (FP) PO SCH (09:45)
[2017-06-23] MEDS: CLINDAMYCIN PHOSPHATE 1% TOPICAL GEL 30 GM TUBE TP SCH ×2 (09:46→21:18)
[2017-06-23] MEDS: NICOTINE 14 MG/24 HOURS TOPICAL PATCH TD SCH (09:47)
[2017-06-23] MEDS: THIAMINE HCL 100 MG TABLET (FP) PO SCH (21:17)
[2017-06-23] MEDS: QUEtiapine FUMARATE 50 MG TABLET PO SCH (21:17)
[2017-06-24] MEDS: ALBUTEROL SO4 18 GM HFA INHALER IH PRN ×2 (06:52→21:09)
[2017-06-24] MEDS: PRENATAL VITAMINS W/ FOLIC ACID TABLET (FP) PO SCH (09:44)
[2017-06-24] MEDS: NICOTINE 14 MG/24 HOURS TOPICAL PATCH TD SCH (09:46)
[2017-06-24] MEDS: CLINDAMYCIN PHOSPHATE 1% TOPICAL GEL 30 GM TUBE TP SCH ×2 (09:46→21:08)
[2017-06-24] MEDS: QUEtiapine FUMARATE 50 MG TABLET PO SCH (21:08)
[2017-06-24] MEDS: THIAMINE HCL 100 MG TABLET (FP) PO SCH (21:08)
[2017-06-25] MEDS: ALBUTEROL SO4 18 GM HFA INHALER IH PRN ×3 (05:53→21:02)
[2017-06-25] MEDS: NICOTINE 14 MG/24 HOURS TOPICAL PATCH TD SCH (09:49)
[2017-06-25] MEDS: PRENATAL VITAMINS W/ FOLIC ACID TABLET (FP) PO SCH (09:49)
[2017-06-25] MEDS: CLINDAMYCIN PHOSPHATE 1% TOPICAL GEL 30 GM TUBE TP SCH ×2 (09:49→21:03)
[2017-06-25] MEDS: QUEtiapine FUMARATE 50 MG TABLET PO SCH (21:01)
[2017-06-25] MEDS: THIAMINE HCL 100 MG TABLET (FP) PO SCH (21:02)
[2017-06-26] MEDS: ALBUTEROL SO4 18 GM HFA INHALER IH PRN ×3 (04:28→21:01)
[2017-06-26] MEDS: PRENATAL VITAMINS W/ FOLIC ACID TABLET (FP) PO SCH (09:39)
[2017-06-26] MEDS: CLINDAMYCIN PHOSPHATE 1% TOPICAL GEL 30 GM TUBE TP SCH ×2 (09:39→21:01)
[2017-06-26] MEDS: NICOTINE 14 MG/24 HOURS TOPICAL PATCH TD SCH (09:41)
[2017-06-26] MEDS: THIAMINE HCL 100 MG TABLET (FP) PO SCH (21:00)
[2017-06-26] MEDS: QUEtiapine FUMARATE 50 MG TABLET PO SCH (21:00)
[2017-06-27] MEDS: NICOTINE 14 MG/24 HOURS TOPICAL PATCH TD SCH (09:51)
[2017-06-27] MEDS: PRENATAL VITAMINS W/ FOLIC ACID TABLET (FP) PO SCH (09:51)
[2017-06-27] MEDS: ALBUTEROL SO4 18 GM HFA INHALER IH PRN ×3 (09:52→21:04)
[2017-06-27] MEDS: CLINDAMYCIN PHOSPHATE 1% TOPICAL GEL 30 GM TUBE TP SCH ×2 (09:52→21:04)
[2017-06-27] MEDS: QUEtiapine FUMARATE 50 MG TABLET PO SCH (21:03)
[2017-06-27] MEDS: THIAMINE HCL 100 MG TABLET (FP) PO SCH (21:04)
[2017-06-28] MEDS: ALBUTEROL SO4 18 GM HFA INHALER IH PRN (07:20)
[2017-06-28] MEDS: PRENATAL VITAMINS W/ FOLIC ACID TABLET (FP) PO SCH (09:42)
[2017-06-28] MEDS: CLINDAMYCIN PHOSPHATE 1% TOPICAL GEL 30 GM TUBE TP SCH ×2 (10:44→21:11)
[2017-06-28] MEDS: NICOTINE 14 MG/24 HOURS TOPICAL PATCH TD SCH (10:45)
--- NOTE | 2017-06-28 14:20 | PN ---
Psychiatric Progress Note Vital Signs: Vital Signs Period Temp Pulse Resp BP Sys/Steven Pulse Ox Last 24 Hr 97.8 F 78 18-18 106/67 Date of Session: 06/28/17 Chief Complaint:: discharge visit HPI: Patient is addressing cacaine, opioid dependence comorbid substance induced sleep and mood disorder. ROS: WNL Current Medications: Active Medications Generic Name Dose Route Start Last Admin Trade Name Freq PRN Reason Stop Dose Admin Acetaminophen 650 mg 06/15/17 14:34 06/19/17 09:34 Tylenol - PO 650 mg Q4H PRN Administration FEVER Al Hydroxide/Mg Hydroxide 30 ml 06/15/17 14:34 Mylanta Oral Suspension - PO Q6H PRN DYSPEPSIA Albuterol Sulfate 2 puff 06/15/17 14:34 06/28/17 07:20 Ventolin Hfa Inhaler - IH 2 puff Q4H PRN Administration ASTHMA Clindamycin Phosphate 1 applic 06/16/17 11:45 06/28/17 10:44 Cleocin 1% Gel - TP Not Given BID ALEJO Eucalyptus/Menthol/Phenol/Sorbitol 1 each 06/15/17 14:34 Cepastat Lozenge - MM Q4H PRN SORE THROAT Guaifenesin 10 ml 06/15/17 14:34 Robitussin Dm - PO Q6H PRN COUGH Hydroxyzine Pamoate 50 mg 06/15/17 14:34 06/20/17 21:10 Vistaril - PO 50 mg Q4H PRN Administration AGITATION Ibuprofen 400 mg 06/15/17 14:34 Motrin - PO Q6H PRN Pain Level 4-6 Loperamide HCl 4 mg 06/15/17 14:34 Imodium - PO Q6H PRN DIARRHEA Magnesium Citrate 300 ml 06/15/17 14:34 Citroma - PO Q48H PRN CONSTIPATION Magnesium Hydroxide 30 ml 06/15/17 14:34 Milk Of Magnesia - PO DAILY PRN CONSTIPATION Nicotine 14 mg 06/16/17 10:00 06/28/17 10:45 Nicoderm Patch - TD 14 mg DAILY ALEJO Administration Nicotine Polacrilex 2 mg 06/15/17 14:34 Nicorette Gum - BUC Q2H PRN NICOTINE REPLACEMENT RX Multivit/Folic Acid/Iron 1 tab 06/16/17 10:00 06/28/17 09:42 Vitamins (Sjr) - PO 1 tab DAILY ALEJO Administration Pseudoephedrine/Triprolidine 1 combo 06/15/17 14:34 Actifed - PO TID PRN NASAL CONGESTION Quetiapine Fumarate 150 mg 06/21/17 22:00 06/27/17 21:03 Seroquel - PO 150 mg HS ALEJO Administration Thiamine HCl 100 mg 06/15/17 22:00 06/27/17 21:04 Vitamin B1 - PO 100 mg HS ALEJO Administration Current Side Effect: No Lab tests ordered: No Lab tests reviewed: Yes Provider note:: Patient will complete this treatment on 06/29/17 and meet his identified goals, will continue to address his issues at [facility], he gained insights into his addiction and motivated to continue maintain abstinence. Patient focused on importance to change attitudes/behavior and use alternative ways to cope with life stressors. Patient was encouraged to utilize all supports avilable to prevent relapses.Medications (seroquel) well tolerated , scripts provided for 30 days supply, f/u at [facility] with a psychiatrist. He is stable for discharge today. Total face to face time:: 30 Mental Status Exam - Mental Status Exam Alert and Oriented to: Time, Place, Person Cognitive Function: Grossly Intact Patient Appearance: Well Groomed Mood: Hopeful Affect: Appropriate, Mood Congruent Patient Behavior: Appropriate, Cooperative Speech Pattern: Clear, Appropriate Voice Loudness: Normal Thought Process: Intact, Goal Oriented Thought Disorder: Not Present Hallucinations: Denies Suicidal Ideation: Denies Homicidal Ideation: Denies Insight/Judgement: Fair Sleep: Fair Appetite: Fair Muscle strength/Tone: Normal Gait/Station: Normal
[2017-06-28] MEDS: QUEtiapine FUMARATE 50 MG TABLET PO SCH (21:11)
[2017-06-28] MEDS: THIAMINE HCL 100 MG TABLET (FP) PO SCH (21:11)
[2017-06-29 06:30] VITALS: BP 109/74; PULSE 82; TEMP 98.3
[2017-06-29] MEDS: PRENATAL VITAMINS W/ FOLIC ACID TABLET (FP) PO SCH (09:48)
[2017-06-29] MEDS: NICOTINE 14 MG/24 HOURS TOPICAL PATCH TD SCH (09:49)
[2017-06-29] MEDS: CLINDAMYCIN PHOSPHATE 1% TOPICAL GEL 30 GM TUBE TP SCH (09:49)
== END 2017-06-29 10:15 | disposition home or self-care (01) | DRG 772 ==
LOC: YASAS 12:25 → Y5N 12:29
PROVIDERS: ADMIT Psychiatry & Neurology Psychiatry; ATTEND Psychiatry & Neurology Psychiatry
PROC: HZ42ZZZ Group Counseling for Substance Abuse Treatment, Cognitive-Behavioral (ICD-10-PCS; principal; 2017-06-15)
DX: F11.20 Opioid dependence, uncomplicated (principal); F14.20 Cocaine dependence, uncomplicated; F12.20 Cannabis dependence, uncomplicated; F19.24 Other psychoactive substance dependence with psychoactive substance-induced mood disorder; F19.282 Other psychoactive substance dependence with psychoactive substance-induced sleep disorder; E87.6 Hypokalemia; J45.909 Unspecified asthma, uncomplicated; L70.8 Other acne